=== PATIENT | male | born 1965 | race Hispanic/Latino ===

== ENCOUNTER 2018-03-27 14:36 | Emergency (ER) | payer SELFPAY ==
[~2018-03-27 14:36] MED LIST: METFORMIN500 MG PO
[2018-03-27] MEDS ORDERED: METFORMIN850 MG PO (14:43)
[2018-03-27] MEDS ORDERED: GLYNASE3 MG PO (14:44)
[2018-03-27] MEDS ORDERED: TAMSULOSIN0.4 MG PO (14:45)
[2018-03-27] MEDS ORDERED: MOTRIN800 MG PO (15:41)
[2018-03-27] MEDS ORDERED: TRAMADOL HCL50 MG PO (15:41)
[2018-03-27] MEDS ORDERED: KEFLEX500 M1 PO (15:41)
[2018-03-27 15:54] VITALS: BP 133/71
== END 2018-03-27 16:02 | disposition home or self-care (01) | DRG 605 ==
LOC: ED 14:36
PROC: 0HQEXZZ Repair Left Lower Arm Skin, External Approach (ICD-10-PCS; principal; 2018-03-27)
DX: S51.012A Laceration without foreign body of left elbow, initial encounter (principal); E11.9 Type 2 diabetes mellitus without complications; W27.0XXA Contact with workbench tool, initial encounter; Y93.89 Activity, other specified; Y92.009 Unspecified place in unspecified non-institutional (private) residence as the place of occurrence of the external cause

== ENCOUNTER 2018-03-31 08:31 | Emergency (ER) | payer SELFPAY ==
[~2018-03-31] VITALS: Ht 167.6 cm; Wt 100.0 kg
[~2018-03-31 08:31] MED LIST changes: +GLYNASE3 MG PO; +KEFLEX500 M1 PO; +METFORMIN850 MG PO; +MOTRIN800 MG PO; +TAMSULOSIN0.4 MG PO; +TRAMADOL HCL50 MG PO
[2018-03-31 09:21] VITALS: BP 126/82
== END 2018-03-31 09:25 | disposition home or self-care (01) | DRG 950 ==
LOC: ED 08:31
DX: S51.012D Laceration without foreign body of left elbow, subsequent encounter (principal); E11.9 Type 2 diabetes mellitus without complications; X58.XXXD Exposure to other specified factors, subsequent encounter